=== PATIENT | female | born 1965 | race Caucasian/White ===

== ENCOUNTER 2017-05-10 18:33 | Emergency (ER) | payer BC, OTHER ==
[~2017-05-10] VITALS: Ht 152.4 cm; Wt 141.0 kg
[~2017-05-10 18:33] MED LIST: JANUVIA; LISINOPRIL; MAPAP; METFORMIN; PANTOPRAZOLE; PROAIR
[2017-05-10 18:41] VITALS: Ht 152.4 cm; Wt 141.0 kg
[2017-05-10] MEDS ORDERED: HYDROCODONE/APAP (10/325) TAB PO ONE (21:00)
--- NOTE | 2017-05-10 21:14 | ERD ---
ER Documentation Chief Complaint Date/Time DATE: 05/10/17 TIME: 21:12 Chief Complaint back pain started after lifting heavy boxes since wednesday HPI 51-year-old female presents here to emergency department for complaints of lower back pain after lifting heavy boxes 1 week ago. Patient describes the pain as sharp pain, 6/10 scale, as was upon movement. Patient denies any numbness or tingling. Patient denies any incontinence. ROS All systems reviewed and are negative except as per history of present illness. Medications Home Meds Reported Medications [Pantoprazole] No Conflict Check 06/03/16 [Lisinopril] No Conflict Check 06/03/16 [Januvia] No Conflict Check 06/03/16 [Metformin] No Conflict Check 06/03/16 [Proair] No Conflict Check 06/03/16 [Mapap] No Conflict Check 06/03/16 Allergies Allergies: Coded Allergies: No Known Allergy (Unverified , 05/10/17) PMhx/Soc Medical and Surgical Hx: pt denies Surgical Hx History of Surgery: No Anesthesia Reaction: No Hx Neurological Disorder: No Hx Respiratory Disorders: Yes (ASTHMA) Hx Cardiac Disorders: Yes (HTN) Hx Psychiatric Problems: Yes Hx Miscellaneous Medical Probl: Yes (DM) Hx Alcohol Use: No Hx Substance Use: No Hx Tobacco Use: No Smoking Status: Never smoker FmHx Family History: No coronary disease, No diabetes, No other Physical Exam Vitals Vital Signs Date Time Temp Pulse Resp B/P Pulse Ox O2 Delivery O2 Flow Rate FiO2 05/10/17 18:41 98.2 92 18 165/92 97 Physical Exam GENERAL: The patient is well developed and appropriate for usual state of health, in no apparent distress. CHEST: Clear to auscultation bilaterally. There are no rales, wheezes or rhonchi. HEART: Regular rate and rhythm. No murmurs, clicks, rubs or gallops. No S3 or S4. ABDOMEN: Soft, nontender and nondistended. Good bowel sounds. No rebound or guarding. No gross peritonitis. No gross organomegaly or masses. No Higgins sign or McBurney point tenderness. BACK: No midline or flank tenderness. Muscle spasms noted in the paraspinal aspect of the lumbar spine, able to do full range of motion without any restrictions. EXTREMITIES: Equal pulses bilaterally. There is no peripheral clubbing, cyanosis or edema. No focal swelling or erythema. Full range of motion. Grossly neurovascularly intact. NEURO: Alert and oriented. Cranial nerves 2-12 intact. Motor strength in all 4 extremities with 5/5 strength. Sensation grossly intact. Normal speech and gait. SKIN: There is no apparent rash or petechia. The skin is warm and dry. HEMATOLOGIC AND LYMPHATIC: There is no evidence of excessive bruising or lymphedema. No gross cervical, axillary, or inguinal lymphadenopathy. Results 24 hrs Current Medications Medications (Trade) Dose Ordered Sig/Jessica Route PRN Reason Start Time Stop Time Status Last Admin Dose Admin Acetaminophen/ Hydrocodone Bitart ([place] ()) 1 tab ONCE ONCE PO 05/10/17 21:00 05/10/17 21:01 DC 05/10/17 20:50 Patient was given medication for pain here in emergency department, after treatment, patient verbalized feeling much better. Patient's pain is improved. PROCEDURE: CT Lumbar Spine without contrast. CLINICAL INDICATION: 51-year-old female with lumbar spine pain. TECHNIQUE: The study was performed on a multislice multidetector CT scanner. Spiral axial 1 mm images were obtained through the lumbar spine without intravenous contrast. 1 or more of the following dose reduction techniques were utilized: Automated exposure control, adjustment of the mA and/or kV according to patient's size, iterative reconstruction technique. Coronal and sagittal reformations were obtained. The images were reviewed on a PACS workstation. RADIATION DOSE: CTDIvol: 43.3 mGy DLP: 1252.7 mGy-cm COMPARISON: No prior studies are available for comparison. FINDINGS: There is 5 mm of retrolisthesis of L5 on S1. There are anterior osteophytes at L5-S1 with severe disc-space narrowing and associated moderate discogenic endplate changes. There is no evidence of contouring or erosive changes. The remaining intervertebral discs are normal in height. The vertebral body heights and marrow density are normal. The paraspinal soft tissues unremarkable. No significant paraspinal soft tissue swelling. L1-L2: The posterior margin of the disc is normal in appearance. No significant disc bulge or protrusion is evident. The central canal and neural foramina are adequately patent. L2-L3: The posterior margin of the disc is normal in appearance. No significant disc bulge or protrusion is evident. The central canal and neural foramina are adequately patent. L3-L4: There is a 2-3 mm annular disc bulge asymmetric to the left foraminal/ far lateral region. The thecal sac and lateral recesses are patent. There is mild bilateral facet spondylosis. There is moderate left and mild right neural foraminal narrowing. L4-L5: There is a 2 mm annular disc bulge. The thecal sac and lateral recesses are patent. There is mild bilateral facet spondylosis. There is mild bilateral neural foraminal narrowing. L5-S1: There is 5 mm of retrolisthesis of L5 on S1 with a superimposed 4-5 mm left paracentral/foraminal disc bulge. There is severe left and moderate right lateral recess narrowing. The central thecal sac is patent, measuring at the 11 mm midline AP diameter. There is severe bilateral neural foraminal narrowing. IMPRESSION: 1. No acute abnormality of the lumbar spine. No evidence of fracture. 2. Moderate to severe spondylosis at L5-S1 with subsequent severe left and moderate right lateral recess narrowing and severe bilateral neural foraminal narrowing. No significant central stenosis. 3. 2-3 mm annular disc bulge at L3-4 asymmetric to the left foraminal/far lateral region with subsequent moderate left and mild right neural foraminal narrowing. RPTAT: HGAS .Regulo Cardozo MD, Date Time Electronically viewed and signed by .Regulo Cardozo MD, MD on 05/10/2017 21: 47 .S/ CC: MALCOLM MARIE COMPUTER SUPPORT TECHNICIAN Procedures/MDM Medical Decision Making: Patient's pain is most likely consistent with a back strain worsening with degenerative disc disease. There is no suspicion for neurovascular compromise. Patient has intact sensation and circulation of the affected extremity and distal extremities. No incontinence, no suspicion for cauda equina syndrome, no saddle anesthesia, no symptoms of any acute bacterial infection, no symptoms of any perirectal abscesses, pilonidal cyst.There is low suspicion for septic arthritis. Patient does not have any fever. No symptoms of any aortic dissection or aortic aneurysm. Radiology exam not indicated at this time. Disposition: Home. Patient is given prescription for ibuprofen for mild to moderate pain, Verona for severe pain, Flexeril for muscle spasm. Patient was advised to avoid heavy lifting , apply warm compresses on affected area. Patient was advised that if symptoms are worse, numbness, tingling, high fever, unable to move joint, worsening symptoms, to return to emergency department immediately. Otherwise, patient is advised to follow up with the primary care doctor in 5-7 days for reevaluation of symptoms. Disclaimer: Inadvertent spelling and grammatical errors are likely due to EHR/ dictation software use and do not reflect on the overall quality of patient care. Also, please note that the electronic time recorded on this note does not necessarily reflect the actual time of the patient encounter. Departure Diagnosis: Primary Impression: Back pain Back pain location: low back pain Chronicity: acute Back pain laterality: bilateral Sciatica presence: without sciatica Qualified Code: M54.5 - Acute bilateral low back pain without sciatica Additional Impression: Degenerative disc disease Spinal region: lumbosacral Qualified Code: M51.37 - Degeneration of intervertebral disc of lumbosacral region Condition: Stable Patient Instructions: Back Pain (Acute Or Chronic), Degenerative Disk Disease Additional Instructions: Patient is given prescription for ibuprofen for mild to moderate pain, [place] for severe pain, Flexeril for muscle spasm. Patient was advised to avoid heavy lifting , apply warm compresses on affected area. Patient was advised that if symptoms are worse, numbness, tingling, high fever, unable to move joint, worsening symptoms, to return to emergency department immediately. Otherwise, patient is advised to follow up with the primary care doctor in 5-7 days for reevaluation of symptoms. MALCOLM MARIE NP May 10, 2017 21:14
--- NOTE | 2017-05-10 21:47 | RADRPT ---
PROCEDURE: CT Lumbar Spine without contrast. CLINICAL INDICATION: 51-year-old female with lumbar spine pain. TECHNIQUE: The study was performed on a multislice multidetector CT scanner. Spiral axial 1 mm im ages were obtained through the lumbar spine without intravenous contrast. 1 or more of the following dose reduction techniques were utilized: Automated exposure control, adjustment of the mA and/or k V according to patient's size, iterative reconstruction technique. Coronal and sagittal reformation s were obtained. The images were reviewed on a PACS workstation. RADIATION DOSE: CTDIvol: 43.3 mGyDLP: 1252.7 mGy-cm COMPARISON: No prior studies are available for comparison. FINDINGS: There is 5 mm of retrolisthesis of L5 on S1. There are anterior osteophytes at L5-S1 with severe dis c-space narrowing and associated moderate discogenic endplate changes. There is no evidence of conto uring or erosive changes. The remaining intervertebral discs are normal in height. The vertebral [place] heights and marrow density are normal. The paraspinal soft tissues unremarkable. No significant paraspinal soft tissue swelling. L1-L2: The posterior margin of the disc is normal in appearance. No significant disc bulge or prot rusion is evident. The central canal and neural foramina are adequately patent. L2-L3: The posterior margin of the disc is normal in appearance. No significant disc bulge or prot rusion is evident. The central canal and neural foramina are adequately patent. L3-L4: There is a 2-3 mm annular disc bulge asymmetric to the left foraminal/far lateral region. T he thecal sac and lateral recesses are patent. There is mild bilateral facet spondylosis. There is moderate left and mild right neural foraminal narrowing. L4-L5: There is a 2 mm annular disc bulge. The thecal sac and lateral recesses are patent. There is mild bilateral facet spondylosis. There is mild bilateral neural foraminal narrowing. L5-S1: There is 5 mm of retrolisthesis of L5 on S1 with a superimposed 4-5 mm left paracentral/fora zandra disc bulge. There is severe left and moderate right lateral recess narrowing. The central thec al sac is patent, measuring at the 11 mm midline AP diameter. There is severe bilateral neural ar inal narrowing. IMPRESSION: 1. No acute abnormality of the lumbar spine. No evidence of fracture. 2. Moderate to severe spondylosis at L5-S1 with subsequent severe left and moderate right lateral r ecess narrowing and severe bilateral neural foraminal narrowing. No significant central stenosis. 3. 2-3 mm annular disc bulge at L3-4 asymmetric to the left foraminal/far lateral region with subse quent moderate left and mild right neural foraminal narrowing. RPTAT: HGAS .Regulo Cardozo MD, MD Date Time Electronically viewed and signed by .Regulo Cardozo MD, MD on 05/10/2017 21:47 .S/
[2017-05-10] MEDS ORDERED: CYCL-319 PO (21:57)
[2017-05-10] MEDS ORDERED: IBUP-1542 PO (21:57)
[2017-05-10] MEDS ORDERED: HYDR-906 PO (21:57)
== END 2017-05-10 22:03 | disposition home or self-care (01) ==
LOC: FTE 18:33
DX: M54.5 Low back pain (principal); M51.37 Other intervertebral disc degeneration, lumbosacral region; E11.9 Type 2 diabetes mellitus without complications; I10 Essential (primary) hypertension; J45.909 Unspecified asthma, uncomplicated
CPT/HCPCS: 72131; Z7502; Z7610

== ENCOUNTER 2017-10-06 21:34 | Emergency (ER) | END 2017-10-07 02:27 | disposition home or self-care (01) ==